=== PATIENT | female | born 1975 | race African-American/Black ===

== ENCOUNTER 2018-10-21 09:04 | Emergency (ER) | payer BC ==
[~2018-10-21] VITALS: Ht 167.6 cm; Wt 73.0 kg
[2018-10-21] MEDS ORDERED: KETOROLAC 15MG/ML VIAL IM ONE (10:15)
[2018-10-21 12:07] VITALS: BP 108/68
== END 2018-10-21 12:09 | disposition home or self-care (01) ==
LOC: ER 09:44
DX: S16.1XXA Strain of muscle, fascia and tendon at neck level, initial encounter (principal); V49.49XA Driver injured in collision with other motor vehicles in traffic accident, initial encounter; Y93.89 Activity, other specified; Y92.89 Other specified places as the place of occurrence of the external cause; Y99.8 Other external cause status
CPT/HCPCS: 29515; 72100; 73562; 96372; 99283; J1885